=== PATIENT | male | born 1990 | race Caucasian/White ===

== ENCOUNTER 2024-04-15 13:16 | Emergency (ER) | payer OTHER, SELFPAY ==
--- NOTE | ~2024-04-15 | XR_ITS ---
EXAM: XR ankle RT min 3V DATE: 04/15/2024 14:01 HISTORY: rolled ankle 1 week ago. pain medial . COMPARISON: None available. FINDINGS: Normal mineralization. No fracture or dislocation. No lytic or blastic lesion. Joint space s are maintained. No erosion or periosteal change. Soft tissues within normal limits. IMPRESSION: No acute osseous finding in the right ankle. Reviewed, dictated and finalized at location K. [facility] JUD[facility]
[2024-04-15 13:30] VITALS: BP 122/82; PULSE 66; RESP 18; TEMP 36.7; O2SAT 100
--- NOTE | 2024-04-15 13:46 | ED.URI ---
HPI - URI/Sore Throat General Chief Complaint: Upper Respiratory Infection Stated Complaint: Right Foot Pain, and Congestion Time Seen by Provider: 04/15/24 13:32 Source: patient and RN notes reviewed Mode of arrival: ambulatory Limitations: no limitations History of Present Illness HPI Narrative: Patient presents today complaining of pain to the right medial ankle. He twisted or rolled the ankle 1 week ago while playing soccer. No pain at rest, but this increases with any weight-bearing. He has been taking ibuprofen with some mild relief. Patient is also complaining of a 2 day history of rhinorrhea, postnasal drip, sore throat, cough. Denies fever or shortness of breath. He has tried DayQuil and NyQuil with some mild relief. Patient states 2 of his children were sick last week with cold symptoms. Related Data Home Medications ?Medication ?Instructions ?Recorded ?Confirmed ?Last Taken ?Type No Home Medications 04/15/24 04/15/24 Unknown History Allergies Allergy/AdvReac Type Severity Reaction Status Date / Time No Known Allergies Allergy Verified 04/15/24 13:37 Review of Systems Review of Systems: CONSTITUTIONAL: Denies body aches, fever, chills, or sweats. EYES: Denies visual changes, redness, or discharge. ENT: Denies congestion, or otalgia.+ rhinorrhea, postnasal drip, sore throat CARDIOVASCULAR: Denies chest pain, palpitations, or edema. RESPIRATORY: Denies dyspnea.+ cough GASTROINTESTINAL: Denies abdominal pain, nausea, vomiting, or diarrhea. GENITOURINARY: Denies dysuria or hematuria. SKIN: Denies rash, itching, or wounds. MUSCULOSKELETAL: Denies back pain, or myalgia.+ right medial ankle NEUROLOGIC: Denies headache, numbness, tingling, or weakness. PSYCH: Denies depression or anxiety. PMFSH Comments At time of signature, I have reviewed and agree with nursing past medical, surgical, social and family history unless otherwise noted. Please see nursing chart for further information. There is no relevant family history pertinent to the presenting complaint Exam Narrative: GENERAL: Well-appearing, well-nourished, and in no acute distress. HEAD: Normocephalic, atraumatic. EYES: EOMI. No redness or drainage. Conjunctivae normal. ENT: Mucous membranes pink and moist. Nares clear. No rhinorrhea. TMs normal bilaterally. Throat normal. Uvula midline. NECK: Normal AROM. Supple. No lymphadenopathy. CHEST: No respiratory distress. Clear to auscultation. HEART: Regular rate and rhythm. No murmur appreciated. EXTREMITIES: Right ankle: Tenderness and scant edema to soft tissue just posterior to the medial malleolus with a small area of ecchymosis. Distal sensation intact. Capillary refill normal. Pedal pulse normal. Full range of motion of the ankle. No bony tenderness of the medial or lateral malleolus. SKIN: Warm, dry, no rash. Capillary refill normal. Normal skin turgor. NEURO: No focal deficits. Alert and oriented x3. Gait steady. PSYCH: Normal affect. No signs of depression or anxiety. Course Course Level of Care: Express Care Visit Vital Signs Vital signs: Vital Signs Temperature 98.1 F 04/15/24 13:30 Pulse Rate 66 04/15/24 13:30 Respiratory Rate 18 04/15/24 13:30 Blood Pressure 122/82 04/15/24 13:30 Pulse Oximetry 100 04/15/24 13:30 Temperature 98.1 F 04/15/24 13:30 Pulse Rate 66 04/15/24 13:30 Respiratory Rate 18 04/15/24 13:30 Blood Pressure 122/82 04/15/24 13:30 Pulse Oximetry 100 04/15/24 13:30 Oxygen Delivery Room Air 04/15/24 13:35 Reviewed MDM - URI/Sore Throat MDM Narrative Medical decision making narrative: Patient declines influenza testing. COVID negative. Ankle x-ray negative. Symptoms likely viral in etiology. Discussed [id number] medication use and duration of illness. No prescription medications indicated at this time. Anticipatory guidance given. Recommend follow up with PCP or ortho for ankle pain. Differential Diagnosis Differential diagnosis: Likely upper respiratory infection, viral infection, influenza and other (Ankle sprain, fracture, COVID) Lab Data Attestation: I reviewed the patient's lab results. Lab results narrative: COVID negative Imaging Data Radiologist's impression: ITS Impressions Ankle X-Ray 04/15/24 14:04 IMPRESSION: No acute osseous finding in the right ankle. Critical Care Time Critical Care Time Critical Care Time: No Discharge Plan Discharge Clinical Impression: Right ankle sprain Qualifiers: Encounter type: initial encounter Involved ligament of ankle: unspecified ligament Qualified Code(s): S93.401A - Sprain of unspecified ligament of right ankle, initial encounter Upper respiratory infection Qualifiers: URI type: unspecified URI Qualified Code(s): J06.9 - Acute upper respiratory infection, unspecified Patient Disposition: Home, Self-Care Condition: Stable Instructions: Ankle Sprain (DC), Upper Respiratory Infection (DC) Additional Instructions: Your COVID-19 test is negative. Your symptoms are likely due to a viral illness, which is not treated with antibiotics. Virus symptoms can last for up to 7-10days. Take or ibuprofen for pain or fever. Rest and stay hydrated. Follow up with your PCP in 7 days if symptoms are not improving. Go to the ER immediately if you develop shortness of breath, difficulty swallowing, or any other concerning symptoms. Your ankle x-ray is negative for fracture. Please follow-up with your PCP or orthopedic physician if symptoms persist. Your blood pressure was elevated above 120/80 today at Urgent Care. This puts you above the threshold for follow up. Please schedule a followup visit with your personal physician as soon as possible, for further evaluation and treatment. Even blood pressure exceeding 120/80 may indicate pre-hypertension. Patient Language: Citizen Of [place] Prescriptions: No Action No Home Medications Follow-up/Referrals: Titi Blas MD [Physician] - Ivonne,Susan Rodriguez MD [Primary Care Provider] - Time of Disposition: 14:13
[2024-04-15 14:05] LABS: EDCOVIDSCREEN Negative (Negative)
[2024-04-15 14:12] LABS: EDCOVIDSCREEN Negative (Negative)
== END 2024-04-15 14:25 | disposition home or self-care (01) ==
PROVIDERS: Emergency Provider Nurse Practitioner; PCP Student in an Organized Health Care Education/Training Program
DX: S93.401A Sprain of unspecified ligament of right ankle, initial encounter (principal); X50.9XXA Other and unspecified overexertion or strenuous movements or postures, initial encounter; Y93.66 Activity, soccer; J06.9 Acute upper respiratory infection, unspecified; Z20.822 Contact with and (suspected) exposure to COVID-19
CPT/HCPCS: 73610; 87426; 99203; G0463